=== PATIENT | female | born 1955 | race American Indian/Alaskan Native ===

== ENCOUNTER 2017-03-14 14:29 | Outpatient (CLI) | payer BC ==
--- NOTE | 2017-03-14 14:51 | Mammography Report ---
BILATERAL MAMMOGRAM with CAD: HISTORY: Digital screening. Comparison study is dated December 18, 2014. FINDINGS: There are scattered fibroglandular densities (approximately 25%-50% glandular). No mass, distortion, suspicious calcification, or skin change is seen. IMPRESSION: Negative mammogram. There is no mammographic evidence of malignancy. RECOMMENDATION: Follow-up per ACS guidelines. BI-RADS CATEGORY: 1 = Negative ACR BI-RADS MAMMOGRAPHIC CODES: 0 = Needs additional imaging evaluation; 1 = Negative; 2 = Benign; 3 = Probably benign; 4 = Suspicious; 5 = Malignant; 6 = Known biopsy-proven malignancy COMMENT: 1. Dense breast tissue, i.e., adenosis, fibrocystic changes, etc., may obscure an underlying neoplasm. 2. Approximately 10% of cancers are not detected with mammography. 3. A negative mammography report should not delay biopsy if a clinically suspicious mass is present. COMMENT: Patient follow-up letters are generated in 2,10E+07.
== END 2017-03-14 14:30 | disposition home or self-care (01) ==
LOC: MAMMO 14:29
PROVIDERS: ATTEND Physician Assistant
DX: Z12.31 Encounter for screening mammogram for malignant neoplasm of breast (principal)
CPT/HCPCS: 77067; G0202

== ENCOUNTER 2018-03-15 12:21 | Outpatient (CLI) | payer BC ==
--- NOTE | 2018-03-15 16:47 | Mammography Report ---
BILATERAL DIGITAL SCREENING MAMMOGRAM with CAD: 03/15/18 12:21:00 CLINICAL: Routine screening. COMPARISON:03/14/17 FINDINGS: The breasts are heterogeneously dense, which may obscure small masses. No mass, architectural distortion or suspicious calcifications. IMPRESSION: No mammographic evidence of malignancy. BI-RADS CATEGORY: 1 - - Negative RECOMMENDATION: Routine mammographic screening in one year. COMMENT: Patient follow-up letters are generated by our [employer] application.
== END 2018-03-15 12:22 | disposition home or self-care (01) ==
LOC: MAMMO 12:21
PROVIDERS: ATTEND Physician Assistant
DX: Z12.31 Encounter for screening mammogram for malignant neoplasm of breast (principal)
CPT/HCPCS: 77067

== ENCOUNTER 2019-04-21 20:20 | Emergency (ER) | payer BC ==
--- NOTE | 2019-04-21 20:28 | Event Note ---
ED Screening Note Date of service: 04/21/19 Time: 20:26 ED Screening Note: 63 y o female presents with elevated Bp out of her medication x 2 weeks cc of mckenna MED: enalalpril-hctz 10-25 This initial assessment/diagnostic orders/clinical plan/treatment(s) is/are subject to change based on patients health status, clinical progression and re- assessment by fellow clinical providers in the ED. Further treatment and workup at subsequent clinical providers discretion. Patient/guardian urged not to elope from the ED as their condition may be serious if not clinically assessed and managed. Initial orders include: clonidine
[2019-04-21 21:08] LABS: Basophils # (Auto) 0.1 K/mm3 (0.0-0.1); Eosinophils # (Auto) 0.1 K/mm3 (0.0-0.4); Eosinophils % (Auto) 1.8 % (0.0-4.3); Hematocrit 40.9 % (30.3-42.9); Hemoglobin 13.8 gm/dl (10.1-14.3); Lymphocytes # (Auto) 2.4 K/mm3 (1.2-5.4); Lymphocytes % (Auto) 39.9 % (13.4-35.0); Mean Corpuscular HGB Conc 34 % (30-34); Mean Corpuscular Volume 81 fl (79-97); Monocytes # (Auto) 0.4 K/mm3 (0.0-0.8); Monocytes % (Auto) 6.2 % (0.0-7.3); Platelet Count 233 K/mm3 (140-440); Red Blood Count 5.03 M/mm3 (3.65-5.03); Red Cell Distribution Width 13.5 % (13.2-15.2)
[2019-04-21 21:52] LABS: BUN/Creatinine Ratio 14; Blood Urea Nitrogen 10 mg/dL (7-17); Calcium 9.6 mg/dL (8.4-10.2); Hemolysis Index 3
--- NOTE | 2019-04-21 23:40 | Emergency Department Report ---
ED General Adult HPI - General Chief complaint: High BP Stated complaint: HIGH BP Time Seen by Provider: 04/21/19 20:25 Source: patient Mode of arrival: Ambulatory Limitations: No Limitations - History of Present Illness Initial comments: 63-year-old -[place] female with a known history of hypertension presented to the emergency department complaining of elevated blood pressures ranging from the 140s to the 160s over 90s, which is increased from her usual 120/80. States she's been out of her blood pressure medication for the last 2 weeks that she is transitioning to find a new PCP as her doctor has relocated. She says last week she had an occasional episode of dull headache associated with some mild dizziness and she also felt a flutter in her chest. She reports no local tenderness, swelling, hemoptysis, hematemesis or hematochezia. no fevers, chills, sweats. -: Gradual Consistency: intermittent Improves with: none Worsens with: none Associated Symptoms: chest pain. denies: fever/chills, loss of appetite, malaise, nausea/vomiting, seizure, syncope, weakness - Related Data Previous Rx's Medication Instructions Recorded Last Taken Type Enalapril/Hydrochlorothiazide 1 each PO DAILY #30 tablet 04/21/19 Unknown Rx [Enalapril-Hctz 10-25 mg Tablet] Allergies Allergy/AdvReac Type Severity Reaction Status Date / Time No Known Allergies Allergy Verified 04/21/19 20:23 ED Review of Systems ROS: Stated complaint: HIGH BP Other details as noted in HPI Comment: All other systems reviewed and negative ED Past Medical Hx - Past Medical History Hx Hypertension: Yes - Surgical History Past Surgical History?: No - Social History Smoking Status: Never Smoker Substance Use Type: None - Medications Home Medications: Home Medications Medication Instructions Recorded Confirmed Last Taken Type Enalapril/Hydrochlorothiazide 1 each PO DAILY #30 tablet 04/21/19 Unknown Rx [Enalapril-Hctz 10-25 mg Tablet] ED Physical Exam - General Limitations: No Limitations General appearance: alert, in no apparent distress - Head Head exam: Present: atraumatic, normocephalic - Eye Eye exam: Present: normal appearance - ENT ENT exam: Present: mucous membranes moist - Neck Neck exam: Present: normal inspection - Respiratory Respiratory exam: Present: normal lung sounds bilaterally. Absent: respiratory distress - Cardiovascular Cardiovascular Exam: Present: regular rate, normal rhythm. Absent: systolic murmur, diastolic murmur, rubs, gallop - GI/Abdominal GI/Abdominal exam: Present: soft, normal bowel sounds - Extremities Exam Extremities exam: Present: normal inspection - Back Exam Back exam: Present: normal inspection - Neurological Exam Neurological exam: Present: alert, oriented X3 - Psychiatric Psychiatric exam: Present: normal affect, normal mood - Skin Skin exam: Present: warm, dry, intact, normal color. Absent: rash ED Course Vital Signs 04/21/19 20:45 Temperature 98.6 F Pulse Rate 81 Respiratory 16 Rate Blood Pressure 161/96 O2 Sat by Pulse 97 Oximetry ED Medical Decision Making - Lab Data Result diagrams: 04/21/19 03:17 04/21/19 20:57 - Medical Decision Making 63-year-old -Cro[place] female status post hypertensin compliance issue due to running out of her medications. Asymptomatic at this present time. Patient is ambulatory in no acute distress. Stable vital signs with exception of blood pressure slightly elevated in the 1 at 160 over the 90s. She is satting well at 97% on room air. Heart rate 80, or any swelling and does not appear to be any acute processes or emergent medical condition. Advised patient on the importance of obtaining a primary care provider in the very near future and reassess resuming her current hypertension regimen, which is enalapril with hydrochlorothiazide Critical care attestation.: If time is entered above; I have spent that time in minutes in the direct care of this critically ill patient, excluding procedure time. ED Disposition Clinical Impression: HTN (hypertension) Disposition: -01 TO HOME OR SELFCARE Is pt being admited?: No Does the pt Need Aspirin: No Condition: Stable Instructions: Hypertension (ED) Prescriptions: Enalapril/Hydrochlorothiazide [Enalapril-Hctz 10-25 mg Tablet] 1 each PO DAILY #30 tablet Referrals: [facility] [Provider Group] - 3-5 Days
--- NOTE | 2019-04-22 | XRay Report ---
CHEST 2 VIEWS INDICATION / CLINICAL INFORMATION: sob and cp. COMPARISON: None available. FINDINGS: SUPPORT DEVICES: None. HEART / MEDIASTINUM: No significant abnormality. LUNGS / PLEURA: No significant pulmonary or pleural abnormality. No pneumothorax. ADDITIONAL FINDINGS: No significant additional findings. Bilateral nipple shadows IMPRESSION: 1. No acute findings. Signer Name: George Carvalho MD Signed: 04/21/2019 11:55 PM Workstation Name: [id number]
[2019-04-22 01:01] VITALS: BP 175/90
== END 2019-04-22 01:39 | disposition home or self-care (01) ==
LOC: ED 20:20
DX: I10 Essential (primary) hypertension (principal); Z79.899 Other long term (current) drug therapy
CPT/HCPCS: 36415; 71046; 80048; 85025; 99284

== ENCOUNTER 2019-05-21 11:44 | Observation (INO) | payer BC ==
[2019-05-21] MEDS ORDERED: MECLIZINE 25 MG TAB PO ONE (12:17)
[2019-05-21 12:44] LABS: Bilirubin,Urine NEG (Negative); Blood,Urine NEG (Negative); Color,Urine Straw (Yellow); Protein,Urine <15 mg/dL mg/dL (Negative); Urobilinogen,Urine < 2.0 mg/dL (<2.0)
[2019-05-21 12:58] LABS: RBC,Urine < 1.0 /HPF (0.0-6.0)
[2019-05-21 12:59] LABS: WBC,Urine < 1.0 /HPF (0.0-6.0)
[2019-05-21 13:17] LABS: Basophils % (Auto) 0.7 % (0.0-1.8); Hematocrit 43.6 % (30.3-42.9); Lymphocytes # (Auto) 1.6 K/mm3 (1.2-5.4); Lymphocytes % (Auto) 33.3 % (13.4-35.0); Mean Corpuscular HGB Conc 32 % (30-34); Mean Corpuscular Volume 82 fl (79-97); Monocytes # (Auto) 0.3 K/mm3 (0.0-0.8); Monocytes % (Auto) 6.7 % (0.0-7.3); Platelet Count 243 K/mm3 (140-440); Red Blood Count 5.31 M/mm3 (3.65-5.03); Red Cell Distribution Width 13.4 % (13.2-15.2)
[2019-05-21 13:28] LABS: BUN/Creatinine Ratio 16; Blood Urea Nitrogen 11 mg/dL (7-17); Hemolysis Index 7
--- NOTE | 2019-05-21 13:36 | Emergency Department Report ---
HPI - General Chief Complaint: Dizziness Time Seen by Provider: 05/21/19 12:14 - HPI HPI: 64-year-old Elise female presents to the emergency department with a complaint of some dizziness that has been going on since yesterday afternoon. She says that she has no previous history of this. No recent fall. She denies any headache, slurred speech, facial asymmetry, or any other neurological deficits. Patient says that she feels like she is spinning/moving. She denies any fever, chest pain, shortness of breath. She has not taken anything for her symptoms prior to arrival. She has a past medical history of hypertension. ED Past Medical Hx - Past Medical History Previous Medical History?: Yes Hx Hypertension: Yes - Surgical History Past Surgical History?: No - Social History Smoking Status: Never Smoker Substance Use Type: None - Medications Home Medications: Home Medications Medication Instructions Recorded Confirmed Last Taken Type Enalapril/Hydrochlorothiazide 1 each PO DAILY #30 tablet 04/21/19 05/21/19 Unknown Rx [Enalapril-Hctz 10-25 mg Tablet] ED Review of Systems ROS: Stated complaint: DIZZINESS Other details as noted in HPI Comment: All other systems reviewed and negative Constitutional: denies: chills, fever Eyes: denies: eye pain, vision change Respiratory: denies: cough, shortness of breath Cardiovascular: denies: chest pain, palpitations Gastrointestinal: denies: abdominal pain, vomiting Musculoskeletal: denies: back pain, arthralgia Neurological: other (dizziness). denies: headache Physical Exam - Physical Exam Vital Signs: Vital Signs 05/21/19 12:15 Temperature 98.1 F Pulse Rate 69 Respiratory 16 Rate Blood Pressure 139/91 O2 Sat by Pulse 100 Oximetry Physical Exam: GENERAL: The patient is well-developed well-nourished. HENT: Normocephalic. Atraumatic. Patient has moist mucous membranes. EYES: Extraocular motions are intact. Pupils equal reactive to light bila terally. Mild fatigable horizontal nystagmus. NECK: Supple. Trachea is midline. CHEST/LUNGS: Clear to auscultation. There is no respiratory distress noted. HEART/CARDIOVASCULAR: Regular. There is no tachycardia. There is no murmur. ABDOMEN: Abdomen is soft, nontender. Patient has normal bowel sounds. There is no abdominal distention. SKIN: Skin is warm and dry. NEURO: The patient is awake, alert, and oriented. The patient is cooperative. The patient has no focal neurologic deficits. Normal speech. Cranial nerves II through XII grossly intact. No pronator drift. No dysmetria. MUSCULOSKELETAL: There is no tenderness or deformity. There is no limitation range of motion. There is no evidence of acute injury. ED Course Vital Signs 05/21/19 12:15 Temperature 98.1 F Pulse Rate 69 Respiratory 16 Rate Blood Pressure 139/91 O2 Sat by Pulse 100 Oximetry ED Medical Decision Making - Lab Data Result diagrams: 05/21/19 12:41 05/21/19 12:41 - Radiology Data Radiology results: report reviewed CT HEAD WITHOUT CONTRAST INDICATION : dizziness. Syncope TECHNIQUE: Axial imaging performed from the skull apex through the skull base without the use of contrast. Sagittal and coronal reformatted images. All CT scans at this location are performed using CT dose reduction for ALARA by means of automated exposure control. COMPARISON: None FINDINGS: Parenchyma: No acute intracranial hemorrhage or parenchymal abnormality. Ventricles: Ventricles are normal in size and appear symmetric. Bones: No acute osseous abnormality. Sinuses: Sinuses and mastoid air cells are clear. Soft tissues: Soft tissues including the orbits appear normal. IMPRESSION: No acute abnormality. CTA head with intravenous contrast CLINICAL HISTORY: dizziness, unstable gait TECHNIQUE: 0.625 mm thick contiguous axial scans were obtained from the skull base to the skull vertex during rapid bolus administration of intravenous contrast material. Multiplanar reconstructions were produced in the coronal and sagittal planes. In addition 3 plane MIP instructions were produced and reviewed for this report. The axial source images and reconstructed images were reviewed for this report. All CT scans at this location are performed using CT dose reduction for ALARA by means of automated exposure control. FINDINGS: The caliber of the intracranial vessels is normal throughout. There is no indication of intracranial stenosis or large vessel occlusion. There is no indication of vasculitis. There is no evidence of aneurysm or other vascular malformation. IMPRESSION: 1. No abnormalities are identified on CTA head. CTA neck without and with intravenous contrast material, with multiplanar reconstruction and with three-dimensional reconstructions produced utilizing an independent workstation. CLINICAL HISTORY: dizziness, unstable gait TECHNIQUE: Following acquisition of a timing bolus 0.63 mm thick contiguous axial scans were obtained from aortic arch to the skull base during rapid bolus intravenous contrast infusion. In addition to evaluation of axial source images multiplanar reconstructions were produced and reviewed for this report. Three-dimensional reconstructions were produced utilizing an independent workstation. These were also reviewed for this report. FINDINGS: No abnormalities are seen at the origins of the great vessels. Common carotid arteries and carotid bifurcations have an unremarkable appearance. The distal cervical segments of both internal carotid arteries are quite tortuous but there is no indication of stenosis or other abnormality. There is no indication of hemodynamically significant stenosis. Normal and symmetrical vertebral arteries are present. There is no indication of stenosis along the course of the vertebral arteries. Both vertebral arteries contribute to the basilar artery origin. The basilar artery has an unremarkable appearance. The degree of stenosis, if any, is determined utilizing NASCET like criteria. In this case there is no indication of hemodynamically significant stenosis at the carotid bifurcations or elsewhere.. Evaluation of the nonvascular soft tissue structures reveal no abnormality. There is no indication of cervical lymphadenopathy. No abnormalities are seen along the course of the airway. Visualized portions of the parotid glands and the submandibular salivary glands have a normal appearance. Thyroid gland has a normal appearance. Evaluation of the lung apices reveals no evidence of lung nodule or infiltrate. Evaluation of the cervical spine is remarkable for cervical spondylosis with loss of disc height and anterior and posterior osteophyte formation at multiple levels. Facet and uncovertebral arthritic changes are present at multiple levels with bilateral neuroforaminal stenosis. IMPRESSION: 1. No indication of hemodynamically significant stenosis at the carotid bifurcations or elsewhere. - Medical Decision Making This patient presents with the complaint of some nonspecific dizziness. It partially sounds like some vertigo-like symptoms but she describes it more as feeling like she is spinning on the inside as opposed to a room spinning sensation. On examination she does not have any focal, motor or sensory deficits and her cranial nerves are intact. Labs were unremarkable. CBC, metabolic panel, TSH. EKG did not show any signs of ST elevation CT or dysrhythmia. CT scan of the head without contrast was done that does not show any bleed, shift, mass, ischemia, or any other acute process. I attempted to him. The patient but she appears unstable and had to be caught and then helped back to her room. I then ordered a CT angiography of the head and neck to look into a posterior circulation stroke or thrombus but they returned as negative for any obvious acute process or abnormalities. Once again we tried to ambulate the patient but she is still unstable. She will be admitted to the hospital for further evaluation and treatment and was accepted for admission by the hospitalist, Dr. Briggs. - Differential Diagnosis posterior circulation stroke, vertigo, MS Critical Care Time: No Critical care attestation.: If time is entered above; I have spent that time in minutes in the direct care of this critically ill patient, excluding procedure time. ED Disposition Clinical Impression: Unstable gait, Dizziness Disposition: OP ADMIT IP TO THIS HOSP Is pt being admited?: Yes Condition: Fair Referrals: PRIMARY CARE, [Primary Care Provider] - 3-5 Days Time of Disposition: 18:06
--- NOTE | 2019-05-21 15:06 | Cat Scan Report ---
CT HEAD WITHOUT CONTRAST INDICATION : dizziness. Syncope TECHNIQUE: Axial imaging performed from the skull apex through the skull base without the use of con trast. Sagittal and coronal reformatted images. All CT scans at this location are performed using C T dose reduction for ALARA by means of automated exposure control. COMPARISON: None FINDINGS: Parenchyma: No acute intracranial hemorrhage or parenchymal abnormality. Ventricles: Ventricles are normal in size and appear symmetric. Bones: No acute osseous abnormality. Sinuses: Sinuses and mastoid air cells are clear. Soft tissues: Soft tissues including the orbits appear normal. IMPRESSION: No acute abnormality. Signer Name: Eusebio Baumann Jr, MD Signed: 05/21/2019 3:01 PM Workstation Name: [id number]
--- NOTE | 2019-05-21 16:43 | Cat Scan Report ---
CTA head with intravenous contrast CLINICAL HISTORY: dizziness, unstable gait TECHNIQUE: 0.625 mm thick contiguous axial scans were obtained from the skull base to the skull vertex during ra pid bolus administration of intravenous contrast material. Multiplanar reconstructions were produced in the coronal and sagittal planes. In addition 3 plane MIP instructions were produced and reviewed f or this report. The axial source images and reconstructed images were reviewed for this report. All CT scans at this location are performed using CT dose reduction for ALARA by means of automated e xposure control. FINDINGS: The caliber of the intracranial vessels is normal throughout. There is no indication of intracranial stenosis or large vessel occlusion. There is no indication of vasculitis. There is no evidence of aneurysm or other vascular malformation. IMPRESSION: 1. No abnormalities are identified on CTA head. CONTRAST DOSE REPORT: Omnipaque 350:: 100 mL administered intravenously. Signer Name: Chago Mendoza MD Signed: 05/21/2019 4:39 PM Workstation Name: [id number]
--- NOTE | 2019-05-21 16:51 | Cat Scan Report ---
CTA neck without and with intravenous contrast material, with multiplanar reconstruction and with thr ee-dimensional reconstructions produced utilizing an independent workstation. CLINICAL HISTORY: dizziness, unstable gait TECHNIQUE: Following acquisition of a timing bolus 0.63 mm thick contiguous axial scans were obtained from aorti c arch to the skull base during rapid bolus intravenous contrast infusion. In addition to evaluation of axial source images multiplanar reconstructions were produced and reviewed for this report. Three- dimensional reconstructions were produced utilizing an independent workstation. These were also revie wed for this report. FINDINGS: No abnormalities are seen at the origins of the great vessels. Common carotid arteries and carotid bifurcations have an unremarkable appearance. The distal cervical segments of both internal carotid arteries are quite tortuous but there is no indication of stenosis or other abnormality. There is no indication of hemodynamically significant stenosis. Normal and symmetrical vertebral arteries are present. There is no indication of stenosis along the c ourse of the vertebral arteries. Both vertebral arteries contribute to the basilar artery origin. The basilar artery has an unremarkable appearance. The degree of stenosis, if any, is determined utilizing NASCET like criteria. In this case there is no indication of hemodynamically significant stenosis at the carotid bifurcations or elsewhere.. Evaluation of the nonvascular soft tissue structures reveal no abnormality. There is no indication of cervical lymphadenopathy. No abnormalities are seen along the course of the airway. Visualized porti ons of the parotid glands and the submandibular salivary glands have a normal appearance. Thyroid gla nd has a normal appearance. Evaluation of the lung apices reveals no evidence of lung nodule or infil trate. Evaluation of the cervical spine is remarkable for cervical spondylosis with loss of disc height and anterior and posterior osteophyte formation at multiple levels. Facet and uncovertebral arthritic edwardo nges are present at multiple levels with bilateral neuroforaminal stenosis. IMPRESSION: 1. No indication of hemodynamically significant stenosis at the carotid bifurcations or elsewhere. Contrast dose report: Omnipaque 350: 100 ml, administered intravenously All CT examinations performed at this facility utilize modulated dose reduction, iterative reconstruc tion or weight-based dosing, as appropriate, to obtain a radiation dose which is as low as can reason ably be achieved. Signer Name: Chago Mendoza MD Signed: 05/21/2019 4:47 PM Workstation Name: [id number]
[2019-05-21] MEDS ORDERED: ACETAMINOPHEN 325 MG TAB PO PRN (17:09)
[2019-05-21] MEDS ORDERED: ONDANSETRON 4 MG/2 ML INJ IV PRN (17:09)
[2019-05-21] MEDS ORDERED: ALBUTEROL 2.5 MG/3 ML NEBU IH PRN (17:09)
[2019-05-21] MEDS ORDERED: LORazepam 2 MG/ML VIAL IV PRN (17:11)
[2019-05-21] MEDS ORDERED: MECLIZINE 25 MG TAB PO PRN (17:12)
--- NOTE | 2019-05-21 17:22 | History and Physical Report ---
History of Present Illness Chief complaint: I feel dizzy History of present illness: 64 YO Female with HTN, Malnutrition presents to ED for evaluation. Pt states that she has experienced dizziness over the past 1 day. Pt states that she is unable to walk without losing her balance and feeling as though she is going to fall. Pt was transported to [facility] via private vehicle. Pt seen and evaluated in ED. Pt denies headache, slurred speech, vision loss, skin rash, or recent ill contacts. Patient reports feeling like the room is spinning/moving. Pt seen and evaluated in ED and found to have symptoms consistent with Vertigo. No prior visit for review. No medication listed for reconciliation. Past History Past Medical History: hypertension, other (malnutrition) Past Surgical History: No surgical history, Other (reviewed) Social history: single. denies: smoking, alcohol abuse, prescription drug abuse Family history: no significant family history Medications and Allergies Allergies Allergy/AdvReac Type Severity Reaction Status Date / Time No Known Allergies Allergy Verified 04/21/19 20:23 Home Medications Medication Instructions Recorded Confirmed Last Taken Type Enalapril/Hydrochlorothiazide 1 each PO DAILY #30 tablet 04/21/19 05/21/19 Unknown Rx [Enalapril-Hctz 10-25 mg Tablet] Active Meds: Active Medications Acetaminophen (Tylenol) 650 mg PO Q4H PRN PRN Reason: Pain MILD(1-3)/Fever >100.5/ABDI Albuterol (Proventil) 2.5 mg IH Q4HRT PRN PRN Reason: Shortness Of Breath Famotidine (Pepcid) 20 mg PO BID TEJA Lorazepam (Ativan) 1 mg IV Q4H PRN PRN Reason: Agitation Meclizine HCl (Antivert) 25 mg PO Q8H PRN PRN Reason: Vertigo Ondansetron HCl (Zofran) 4 mg IV Q8H PRN PRN Reason: Nausea And Vomiting Sodium Chloride (Sodium Chloride Flush Syringe 10 Ml) 10 ml IV BID TEJA Sodium Chloride (Sodium Chloride Flush Syringe 10 Ml) 10 ml IV PRN PRN PRN Reason: LINE FLUSH Review of Systems Constitutional: no weight loss, no weight gain, no fever, no chills Ears, nose, mouth and throat: no ear pain, no ear discharge, no tinnitis, no decreased hearing, no nose pain, no nasal congestion Breasts: no change in shape, no swelling, no mass Cardiovascular: no chest pain, no orthopnea, no palpitations, no rapid/irregular heart beat, no syncope, no lightheadedness Respiratory: no cough, no cough with sputum, no excessive sputum, no hemoptysis, no shortness of breath Gastrointestinal: no abdominal pain, no nausea, no vomiting, no diarrhea Genitourinary Female: no pelvic pain, no flank pain, no menorrhagia Rectal: no pain, no incontinence, no bleeding Musculoskeletal: no neck stiffness, no neck pain, no shooting arm pain, no arm numbness/tingling, no low back pain, no shooting leg pain, no leg numbness/tingling Integumentary: no rash, no pruritis, no redness, no sores, no wounds, no jau ndice, no boils Neurological: lack of coordination, vertigo, balance difficulties, no paralysis, no weakness, no parathesias, no numbness, no tingling Psychiatric: no anxiety, no memory loss, no change in sleep habits, no sleep disturbances, no insomnia, no hypersomnia, no change in appetite, no change in libido, no suicidal ideation Endocrine: no cold intolerance, no heat intolerance, no excessive thirst, no polydipsia, no polyuria, no nocturia, no excessive sweating, no weight change Hematologic/Lymphatic: no easy bruising, no easy bleeding, no lymphadenopathy, no lymphedema Allergic/Immunologic: no urticaria, no allergic rhinitis, no wheezing, no persistent infections, no anaphylaxis, no angioedema Exam - Constitutional Vitals: Temp Pulse Resp BP Pulse Ox 97.5 F L 61 16 142/89 100 05/21/19 16:33 05/21/19 16:33 05/21/19 16:33 05/21/19 16:33 05/21/19 16:33 General appearance: Present: no acute distress, well-nourished - EENT Eyes: Present: PERRL ENT: hearing intact, clear oral mucosa - Neck Neck: Present: supple, normal ROM - Respiratory Respiratory effort: normal Respiratory: bilateral: CTA - Cardiovascular Heart Sounds: Present: S1 & S2. Absent: rub, click - Extremities Extremities: pulses symmetrical, No edema Peripheral Pulses: within normal limits - Abdominal General gastrointestinal: Present: soft, non-tender, non-distended, normal bowel sounds Female genitourinary: Present: normal - Integumentary Integumentary: Present: clear, warm, dry - Musculoskeletal Musculoskeletal: gait normal, strength equal bilaterally - Psychiatric Psychiatric: appropriate mood/affect, intact judgment & insight - Neurologic Neurologic: CNII-XII intact, moves all extremities Results - Labs CBC & Chem 7: 05/21/19 12:41 05/21/19 12:41 Labs: Abnormal lab results 05/21/19 Range/Units 12:41 RBC 5.31 H (3.65-5.03) M/mm3 Hct 43.6 H (30.3-42.9) % MCH 27 L (28-32) pg Assessment and Plan - Patient Problems (1) Vertigo Current Visit: Yes Status: Acute Plan to address problem: Meclizine PRN, CT head, CTA Head/Neck, neuro checks, supportive care. (2) HTN (hypertension) Current Visit: Yes Status: Acute Qualifiers: Hypertension type: essential hypertension Qualified Code(s): I10 - Essential (primary) hypertension Plan to address problem: Monitor BP q shift, supportive care, (3) Malnutrition Current Visit: Yes Status: Acute Qualifiers: Malnutrition type: protein-calorie malnutrition Plan to address problem: Encourage increased protein intake, supportive care. dietary supplementation. (4) DVT prophylaxis Current Visit: Yes Status: Acute Plan to address problem: SCD to BLE while in bed, Pt ambulatory
[2019-05-21] MEDS: FAMOTIDINE 20 MG TAB PO SCH (22:34)
[2019-05-22 05:21] LABS: Basophils % (Auto) 0.7 % (0.0-1.8); Eosinophils # (Auto) 0.2 K/mm3 (0.0-0.4); Eosinophils % (Auto) 3.6 % (0.0-4.3); Hematocrit 38.8 % (30.3-42.9); Hemoglobin 12.9 gm/dl (10.1-14.3); Lymphocytes # (Auto) 2.5 K/mm3 (1.2-5.4); Lymphocytes % (Auto) 50.6 % (13.4-35.0); Mean Corpuscular HGB Conc 33 % (30-34); Mean Corpuscular Volume 81 fl (79-97); Monocytes # (Auto) 0.4 K/mm3 (0.0-0.8); Monocytes % (Auto) 7.7 % (0.0-7.3); Platelet Count 215 K/mm3 (140-440); Red Blood Count 4.79 M/mm3 (3.65-5.03); Red Cell Distribution Width 13.4 % (13.2-15.2)
[2019-05-22 06:04] LABS: BUN/Creatinine Ratio 15; Blood Urea Nitrogen 12 mg/dL (7-17); Calcium 9.3 mg/dL (8.4-10.2); Hemolysis Index 1
--- NOTE | 2019-05-22 08:20 | Progress Note ---
Assessment and Plan Assessment and plan: 64-year-old woman who presents to the hospital with dizziness. Past medical history; hypertension CT head; no acute abnormality CTA head and neck; no abnormalities are noted Diagnosis Dizziness Transient autonomic imbalance Vertigo Hypertension Malnutrition hypokalemia Plan CT head and CTA head negative. Has received meclizine. Continue blood pressure meds Potassium has been repleted Obtain echo and cardiology consult and carotid Dopplers, orthostatic vital signs DVT prophylaxis early ambulation and SCDs History Interval history: Dizziness is improved Review of systems Constitutional: No fevers, no malaise, no joint pains CVS: No chest pain, no orthopnea, no pedal edema GI: No abdominal pain, no diarrhea, no vomiting, no constipation Respiratory: No shortness of breath, no wheezing, no coughing Hospitalist Physical - Physical exam Narrative exam: General.: Appears well, no distress, nontoxic HEENT: Moist mucous membranes, extraocular muscles intact, no lymphadenopathy Neck: supple Cardiac: S1-S2 heard Lungs: clear to auscultation bilaterally Abdomen: soft , nontender, nondistended, bowel sounds positive Extremities: no edema clubbing or cyanosis Skin: no rash or lesions Neurologic: no gross focal deficits Psych: calm, and cooperative - Constitutional Vitals: Temp Pulse Resp BP Pulse Ox 98.0 F 68 16 117/75 99 05/22/19 05:41 05/22/19 05:41 05/22/19 05:41 05/22/19 05:41 05/22/19 05:41 General appearance: Present: no acute distress, well-nourished Results - Labs CBC & Chem 7: 05/22/19 04:39 05/22/19 04:39 Labs: Laboratory Last Values WBC 5.0 K/mm3 (4.5-11.0) 05/22/19 04:39 RBC 4.79 M/mm3 (3.65-5.03) 05/22/19 04:39 Hgb 12.9 gm/dl (10.1-14.3) 05/22/19 04:39 Hct 38.8 % (30.3-42.9) 05/22/19 04:39 MCV 81 fl (79-97) 05/22/19 04:39 MCH 27 pg (28-32) L 05/22/19 04:39 MCHC 33 % (30-34) 05/22/19 04:39 RDW 13.4 % (13.2-15.2) 05/22/19 04:39 Plt Count 215 K/mm3 (140-440) 05/22/19 04:39 Lymph % (Auto) 50.6 % (13.4-35.0) H 05/22/19 04:39 [place] % (Auto) 7.7 % (0.0-7.3) H 05/22/19 04:39 Eos % (Auto) 3.6 % (0.0-4.3) 05/22/19 04:39 Baso % (Auto) 0.7 % (0.0-1.8) 05/22/19 04:39 Lymph # 2.5 K/mm3 (1.2-5.4) 05/22/19 04:39 [place] # 0.4 K/mm3 (0.0-0.8) 05/22/19 04:39 Eos # 0.2 K/mm3 (0.0-0.4) 05/22/19 04:39 Baso # 0.0 K/mm3 (0.0-0.1) 05/22/19 04:39 Seg Neutrophils % 37.4 % (40.0-70.0) L 05/22/19 04:39 Seg Neutrophils # 1.9 K/mm3 (1.8-7.7) 05/22/19 04:39 Sodium 141 mmol/L (137-145) 05/22/19 04:39 Potassium 3.3 mmol/L (3.6-5.0) L 05/22/19 04:39 Chloride 103.5 mmol/L (98-107) 05/22/19 04:39 Carbon Dioxide 24 mmol/L (22-30) 05/22/19 04:39 Anion Gap 17 mmol/L 05/22/19 04:39 BUN 12 mg/dL (7-17) 05/22/19 04:39 Creatinine 0.8 mg/dL (0.7-1.2) 05/22/19 04:39 Estimated GFR > 60 ml/min 05/22/19 04:39 BUN/Creatinine Ratio 15 % 05/22/19 04:39 Glucose 86 mg/dL (65-100) 05/22/19 04:39 Calcium 9.3 mg/dL (8.4-10.2) 05/22/19 04:39 TSH 1.480 mlU/mL (0.270-4.200) 05/21/19 14:28 Urine Color Straw (Yellow) 05/21/19 12:32 Urine Turbidity Clear (Clear) 05/21/19 12:32 Urine pH 6.0 (5.0-7.0) 05/21/19 12:32 Ur Specific [place] 1.008 (1.003-1.030) 05/21/19 12:32 Urine Protein <15 mg/dl mg/dL (Negative) 05/21/19 12:32 Urine Glucose (UA) Neg mg/dL (Negative) 05/21/19 12:32 Urine Ketones Neg mg/dL (Negative) 05/21/19 12:32 Urine Blood Neg (Negative) 05/21/19 12:32 Urine Nitrite Neg (Negative) 05/21/19 12:32 Urine Bilirubin Neg (Negative) 05/21/19 12:32 Urine Urobilinogen < 2.0 mg/dL (<2.0) 05/21/19 12:32 Ur Leukocyte Esterase Neg (Negative) 05/21/19 12:32 Urine WBC (Auto) < 1.0 /HPF (0.0-6.0) 05/21/19 12:32 Urine RBC (Auto) < 1.0 /HPF (0.0-6.0) 05/21/19 12:32 U Epithel Cells (Auto) < 1.0 /HPF (0-13.0) 05/21/19 12:32 Active Medications - Current Medications Current Medications: Generic Name Dose Route Start Last Admin Trade Name Freq PRN Reason Stop Dose Admin Acetaminophen 650 mg 05/21/19 17:09 Tylenol PO Q4H PRN Pain MILD(1-3)/Fever >100.5/ABDI Albuterol 2.5 mg 05/21/19 17:09 Proventil IH Q4HRT PRN Shortness Of Breath Famotidine 20 mg 05/21/19 22:00 05/21/19 22:34 Pepcid PO 20 mg BID TEJA Administration Lorazepam 1 mg 05/21/19 17:11 Ativan IV Q4H PRN Agitation Meclizine HCl 25 mg 05/21/19 17:12 Antivert PO Q8H PRN Vertigo Ondansetron HCl 4 mg 05/21/19 17:09 Zofran IV Q8H PRN Nausea And Vomiting Sodium Chloride 10 ml 05/21/19 22:00 05/21/19 22:34 Sodium Chloride Flush Syringe 10 Ml IV 10 ml BID TEJA Administration Sodium Chloride 10 ml 05/21/19 17:09 Sodium Chloride Flush Syringe 10 Ml IV PRN PRN LINE FLUSH
[2019-05-22] MEDS ORDERED: POTASSIUM CHLORIDE ER 20 MEQ TAB PO ONE (09:00)
--- NOTE | 2019-05-22 10:35 | Consultation ---
History of Present Illness Consult date: 05/22/19 Requesting physician: FLO RODRIGUEZ Consult reason: other (dizziness) History of present illness: The pt is a 64-year-old female with a past medical history of HTN and newly diagnosed dyslipidemia. Her PCP is at [facility]. She presented with c/o dizziness for 1 day prior to arrival. She states that she had just finished eating dinner with her family when she noted the onset of a "room spinning" sensation. She went to bed and her dizziness persisted throughout the night and thus she decided to seek medical attention. She denies any occurrence of chest pain, palpitations, n/v, diaphoresis or syncope. She denies any prior cardiac issues or cardiac w/u. She takes enalapril for HTN. On evaluation, she states she is feeling much better, spinning sensation has nearly resolved since initiation of Meclizine. Past History Past Medical History: hypertension Past Surgical History: No surgical history, Other (reviewed) Social history: single. denies: smoking, alcohol abuse, prescription drug abuse Family history: no significant family history Medications and Allergies Allergies Allergy/AdvReac Type Severity Reaction Status Date / Time No Known Allergies Allergy Verified 04/21/19 20:23 Home Medications Medication Instructions Recorded Confirmed Last Taken Type Enalapril/Hydrochlorothiazide 1 each PO DAILY #30 tablet 04/21/19 05/21/19 Unknown Rx [Enalapril-Hctz 10-25 mg Tablet] Meclizine [Antivert] 25 mg PO Q8H PRN #30 tablet 05/22/19 Unknown Rx Active Meds: Active Medications Acetaminophen (Tylenol) 650 mg PO Q4H PRN PRN Reason: Pain MILD(1-3)/Fever >100.5/ABDI Albuterol (Proventil) 2.5 mg IH Q4HRT PRN PRN Reason: Shortness Of Breath Famotidine (Pepcid) 20 mg PO BID TEJA Last Admin: 05/21/19 22:34 Dose: 20 mg Documented by: Lorazepam (Ativan) 1 mg IV Q4H PRN PRN Reason: Agitation Meclizine HCl (Antivert) 25 mg PO Q8H PRN PRN Reason: Vertigo Ondansetron HCl (Zofran) 4 mg IV Q8H PRN PRN Reason: Nausea And Vomiting Sodium Chloride (Sodium Chloride Flush Syringe 10 Ml) 10 ml IV BID [facility] Last Admin: 05/21/19 22:34 Dose: 10 ml Documented by: Sodium Chloride (Sodium Chloride Flush Syringe 10 Ml) 10 ml IV PRN PRN PRN Reason: LINE FLUSH Review of Systems Constitutional: no weight loss, no weight gain, no fever, no chills, no sweats Ears, nose, mouth and throat: vertigo, no ear pain, no nose pain, no sinus pressure, no sinus pain, no headache Cardiovascular: high blood pressure, no chest pain, no orthopnea, no palpitations, no rapid/irregular heart beat, no edema, no syncope, no lightheadedness, no shortness of breath, no dyspnea on exertion, no leg edema, no decreased exercise tolerance Respiratory: no cough, no shortness of breath, no dyspnea on exertion, no congestion, no wheezing, no pain on inspiration Gastrointestinal: no abdominal pain, no nausea, no vomiting, no diarrhea, no con stipation, no change in bowel habits Genitourinary Female: no pelvic pain, no flank pain, no dysuria, no urinary frequency, no urgency Musculoskeletal: no neck stiffness, no neck pain, no shooting arm pain, no arm numbness/tingling, no low back pain, no shooting leg pain, no leg numbness/tingling Integumentary: no rash, no pruritis, no redness, no sores, no wounds Neurological: vertigo, no head injury, no paralysis, no weakness, no parathesias, no numbness, no tingling, no seizures, no syncope, no lack of coordination, no headaches, no change in speech, no change in mentation, no balance difficulties, no gait dysfunction Psychiatric: no anxiety Endocrine: no heat intolerance Hematologic/Lymphatic: no easy bruising, no easy bleeding Allergic/Immunologic: no urticaria, no wheezing Physical Examination Vital Signs Temp Pulse Resp BP Pulse Ox 98.1 F 69 16 139/91 100 05/21/19 12:15 05/21/19 12:15 05/21/19 12:15 05/21/19 12:15 05/21/19 12:15 General appearance: no acute distress HEENT: Positive: PERRL, Normocephaly, Mucus Membranes Moist Neck: Positive: neck supple, trachea midline Cardiac: Positive: Reg Rate and Rhythm, S1/S2 Lungs: Positive: Decreased Breath Sounds Neuro: Positive: Grossly Intact Abdomen: Negative: Tender Skin: Negative: Rash Musculoskeletal: No Pain Extremities: Absent: edema Results 05/22/19 04:39 05/22/19 04:39 CBC 05/21/19 05/22/19 Range/Units 12:41 04:39 WBC 4.8 5.0 (4.5-11.0) K/mm3 RBC 5.31 H 4.79 (3.65-5.03) M/mm3 Hgb 14.0 12.9 (10.1-14.3) gm/dl Hct 43.6 H 38.8 (30.3-42.9) % Plt Count 243 215 (140-440) K/mm3 Lymph # 1.6 2.5 (1.2-5.4) K/mm3 Slope # 0.3 0.4 (0.0-0.8) K/mm3 Eos # 0.0 0.2 (0.0-0.4) K/mm3 Baso # 0.0 0.0 (0.0-0.1) K/mm3 Comprehensive Metabolic Panel 05/21/19 05/22/19 Range/Units 12:41 04:39 Sodium 140 141 (137-145) mmol/L Potassium 3.6 3.3 L (3.6-5.0) mmol/L Chloride 99.7 103.5 (98-107) mmol/L Carbon Dioxide 25 24 (22-30) mmol/L BUN 11 12 (7-17) mg/dL Creatinine 0.7 0.8 (0.7-1.2) mg/dL Glucose 94 86 (65-100) mg/dL Calcium 10.0 9.3 (8.4-10.2) mg/dL - Imaging and Cardiology Echo: pending EKG: report reviewed, image reviewed EKG interpretations - Telemetry EKG Rhythm: Sinus Rhythm - EKG Sinus rhythms and dysrhythmias: sinus rhythm Assessment and Plan Suspected Vertigo Head CT, head CTA, neck CTA with NAF. Nearly resolved since initiation of Meclizine. ECG with NAF. In SR, HR 56bpm - 70s, on telemetry with no acute events noted since admission. TSH WNL. Echo reviewed - EF 55-60%, small pericardial effusion. Obtain orthostatics. Intermittent sinus bradycardia In SR, HR 56bpm - 70s, on telemetry with no acute events noted since admission. Pt on Enalapril/HCTZ at home. Would cont to avoid AV hua blocking agents. Echo reviewed - EF 55-60%, small pericardial effusion. TSH WNL. HTN Stable. Cont home anti-hypertensive regimen. Obtain orthostatics. Pt's c/o "room spinning" is nearly resolved, suspect vertigo. Pending orthostatics are unremarkable, pt may discharge from cardiology standpoint. Recommend follow up in our office with Dr. Peng within 1-2 weeks ([phone]). The patient has been seen in conjunction with Dr. Peng who agrees with the assessment and plan of care.
[2019-05-22] MEDS: FAMOTIDINE 20 MG TAB PO SCH (10:48)
--- NOTE | 2019-05-22 11:14 | Vascular Lab Report ---
BILATERAL CAROTID DOPPLER ULTRASOUND INDICATION : dizzyness TECHNIQUE: Grayscale and color Doppler imaging performed through the neck. COMPARISON: None FINDINGS: Right: There is no significant atherosclerotic disease. Peak systolic velocity in the CCA is 67 cm/ s with end-diastolic velocity of 16 cm/s. Peak systolic velocity in the proximal ICA is 90 cm/s with end-diastolic velocity of 28 cm/s. ICA to CCA ratio is less than 2. There is antegrade flow in the E CA and the vertebral artery. Left: There is no significant atherosclerotic disease. Peak systolic velocity in the CCA is 66 cm/s w ith end-diastolic velocity of 17 cm/s. Peak systolic velocity in the proximal ICA is 80 cm/s with end -diastolic velocity of 22 cm/s. ICA to CCA ratio is less than 2. There is antegrade flow in the ECA and the vertebral artery. IMPRESSION: No hemodynamically significant stenosis by NASCET criteria. Signer Name: Eusebio Baumann Jr, MD Signed: 05/22/2019 11:10 AM Workstation Name: [id number]
[2019-05-22 12:12] VITALS: BP 133/91
--- NOTE | 2019-05-22 13:53 | Discharge Summary ---
Providers - Providers Date of Admission: 05/21/19 17:09 Attending physician: FLO RODRIGUEZ MD 05/21/19 17:11 Physical Therapy Evaluation and Treat [CONS] Routine Comment: Reason For Exam: [place] [facility]/Vestibular Rehab 05/22/19 08:17 Consult to Cardiology [CONS] Routine Consulting Provider: DARCI OLIVIER Reason For Exam: dizzyness Primary care physician: [employer] Hospitalization Condition: Fair Hospital course: 64-year-old woman who presents to the hospital with dizziness and vertigo. Past medical history; hypertension CT head; no acute abnormality CTA head and neck; no abnormalities are noted Carotid Dopplers were negative Echo did not show any structural abnormalities -Orthostatic vital signs were normal -She was also seen by cardiology while in hospital. The patient was reassured, she was told to follow-up with her primary care for ENT referral should vertigo persists. She was given meclizine as needed upon discharge. If this does not improve she will need to go to inner ear rehab for Raphael maneuver Preventative health counseling performed for 17 minutes Diagnosis Dizziness/vertigo Transient autonomic imbalance Vertigo Hypertension Malnutrition hypokalemia Disposition: - TO HOME OR SELFCARE Time spent for discharge: 33 minutes Core Measure Documentation - Palliative Care Palliative Care/ Comfort Measures: Not Applicable - Core Measures Any of the following diagnoses?: none Exam - Constitutional Vitals: Temp Pulse Resp BP Pulse Ox 98.7 F 87 16 133/91 99 05/22/19 11:51 05/22/19 11:51 05/22/19 11:51 05/22/19 11:51 05/22/19 11:51 General appearance: Present: no acute distress, well-nourished - EENT Eyes: Present: PERRL ENT: hearing intact, clear oral mucosa - Neck Neck: Present: supple, normal ROM - Respiratory Respiratory effort: normal Respiratory: bilateral: CTA - Cardiovascular Heart Sounds: Present: S1 & S2. Absent: rub, click - Extremities Extremities: pulses symmetrical, No edema Peripheral Pulses: within normal limits - Abdominal General gastrointestinal: Present: soft, non-tender, non-distended, normal bowel sounds Female genitourinary: Present: normal - Integumentary Integumentary: Present: clear, warm, dry - Musculoskeletal Musculoskeletal: gait normal, strength equal bilaterally - Psychiatric Psychiatric: appropriate mood/affect, intact judgment & insight - Neurologic Neurologic: CNII-XII intact, moves all extremities Plan Follow up with: PRIMARY CARE, [Primary Care Provider] - 3-5 Days Prescriptions: Meclizine [Antivert] 25 mg PO Q8H PRN #30 tablet PRN Reason: Vertigo
== END 2019-05-22 13:58 | disposition home or self-care (01) ==
LOC: ED 11:44 → 3A 17:09
PROVIDERS: ADMIT Internal Medicine; ATTEND Internal Medicine
DX: R42 Dizziness and giddiness (principal); I10 Essential (primary) hypertension; E46 Unspecified protein-calorie malnutrition
CPT/HCPCS: 36415; 70450; 70496; 70498; 80048; 81001; 84443; 85025; 93005; 93010; 93306; 93880; 97161; 99284; G0378; Q9967

== ENCOUNTER 2021-01-28 19:48 | Emergency (ER) | payer BC ==
[2021-01-28] MEDS ORDERED: ASPIRIN 325 MG TAB PO ONE (22:28)
[2021-01-28 23:36] LABS: Eosinophils # (Auto) 0.2 K/mm3 (0.0-0.4); Eosinophils % (Auto) 2.6 % (0.0-4.3); Hematocrit 40.8 % (30.3-42.9); Hemoglobin 13.4 gm/dl (10.1-14.3); Lymphocytes # (Auto) 2.2 K/mm3 (1.2-5.4); Lymphocytes % (Auto) 33.5 % (13.4-35.0); Mean Corpuscular HGB Conc 33 % (30-34); Mean Corpuscular Volume 82 fl (79-97); Monocytes # (Auto) 0.4 K/mm3 (0.0-0.8); Monocytes % (Auto) 5.8 % (0.0-7.3); Platelet Count 298 K/mm3 (140-440); Red Blood Count 4.96 M/mm3 (3.65-5.03); Red Cell Distribution Width 13.4 % (13.2-15.2)
[2021-01-28 23:46] LABS: Alanine Aminotransferase 14 units/L (7-56); Albumin 4.9 g/dL (3.9-5); Blood Urea Nitrogen 14 mg/dL (7-17); Calcium 9.8 mg/dL (8.4-10.2); Hemolysis Index 2
[2021-01-28 23:51] LABS: BUN/Creatinine Ratio 23
--- NOTE | 2021-01-29 00:35 | XRay Report ---
CHEST 2 VIEWS INDICATION / CLINICAL INFORMATION: chest pain. COMPARISON: 04/21/2019 FINDINGS: SUPPORT DEVICES: None. HEART / MEDIASTINUM: No significant abnormality. LUNGS / PLEURA: Lungs are mildly hyperinflated but otherwise grossly clear. No acute pulmonary or ple ural process noted. A few calcified granulomas are present in the right lung base. No pneumothorax. ADDITIONAL FINDINGS: No significant additional findings. IMPRESSION: 1. No acute findings. No interval change. Signer Name: Amrita Fontaine MD Signed: 01/29/2021 12:30 AM Workstation Name: [id number]
--- NOTE | 2021-01-29 03:36 | Emergency Department Report ---
HPI - General Chief Complaint: Chest Pain Time Seen by Provider: 01/29/21 03:15 - HPI HPI: Room 6 The patient is a 65-year-old female present with a chief complaint of dizziness. Patient states she had 2 episodes of dizziness the first of which occurred approximately 7 days ago. Patient states she had been driving in her car without incident. The patient states that when she was in a parking lot in a car was sitting still she had a sensation that her car was moving even though she was parked. She states the symptoms lasted for several seconds and then subsided. The patient was able to drive without event for the remainder of the week. Earlier this week approximately 2 to 3 days ago she had a second episode of the same when her car was parked she had the sensation of movement and this lasted for several seconds and then resolved. The patient states in 2018 she had a similar episode and was diagnosed with vertigo and sent to an ENT but her work-up was normal. The patient states for the past several months she is had intermittent stinging pain to the left chest that lasts several minutes and then resolved. Patient denies shortness of breath, nausea/vomiting or diaphoresis with these episodes. Patient denies history of palpitations. Patient currently denies chest pain. Patient is currently asymptomatic ED Past Medical Hx - Past Medical History Previous Medical History?: Yes Hx Hypertension: Yes - Surgical History Past Surgical History?: No - Family History Family history: no significant - Social History Smoking Status: Never Smoker Substance Use Type: None (Denies illicit drug use) - Medications Home Medications: Home Medications Medication Instructions Recorded Confirmed Last Taken Type Enalapril/Hydrochlorothiazide 1 each PO DAILY #30 tablet 04/21/19 05/21/19 Unknown Rx [Enalapril-Hctz 10-25 mg Tablet] Meclizine [Antivert] 25 mg PO Q8H PRN #30 tablet 05/22/19 Unknown Rx ED Review of Systems ROS: Stated complaint: DIZZINESS Other details as noted in HPI Constitutional: no symptoms reported Eyes: denies: eye pain ENT: denies: throat pain Respiratory: denies: shortness of breath Cardiovascular: chest pain. denies: palpitations Endocrine: no symptoms reported Gastrointestinal: denies: abdominal pain Genitourinary: denies: urgency, dysuria Musculoskeletal: denies: back pain Neurological: vertigo. denies: headache Physical Exam - Physical Exam Vital Signs: Vital Signs 01/28/21 22:24 Temperature 98.0 F Pulse Rate 56 L Respiratory 16 Rate Blood Pressure 178/85 O2 Sat by Pulse 100 Oximetry Physical Exam: GENERAL: The patient is well-developed well-nourished female lying on stretcher not appearing to be in acute distress. [] HEENT: Normocephalic. Atraumatic. Extraocular motions are intact. Patient has moist mucous membranes. No nystagmus NECK: Supple. Trachea midline CHEST/LUNGS: Clear to auscultation. There is no respiratory distress noted. HEART/CARDIOVASCULAR: Regular. There is no tachycardia. There is no gallop rub or murmur. ABDOMEN: Abdomen is soft, nontender. Patient has normal bowel sounds. There is no abdominal distention. SKIN: There is no rash. There is no edema. There is no diaphoresis. NEURO: The patient is awake, alert, and oriented. The patient is cooperative. The patient has no focal neurologic deficits. The patient has normal speech. Cranial nerves II through XII grossly intact. No dysmetria noted with [id number] bilaterally. GCS 15 MUSCULOSKELETAL: There is no evidence of acute injury. ED Course Vital Signs 01/28/21 22:24 Temperature 98.0 F Pulse Rate 56 L Respiratory 16 Rate Blood Pressure 178/85 O2 Sat by Pulse 100 Oximetry ED Medical Decision Making - Lab Data Result diagrams: 01/28/21 23:01 01/28/21 23:01 - EKG Data -: EKG Interpreted by Me EKG shows normal: sinus rhythm Rate: bradycardia (57 beats per) - EKG Data When compared to previous EKG there are: no significant change Interpretation: unchanged when compared t (05/21/2019) - Radiology Data Radiology results: report reviewed (Chest x-ray, CT head), image reviewed (Chest x-ray, CT head) interpreted by me: Chest x-ray-no focal infiltrates, no pneumothorax. No foreign body seen [facility] [address] [place] [address] XRay Report Signed Patient: SILVANA NAVA MR#: [id number] 740 : 1955 Acct:[id number] Age/Sex: 65 / F ADM Date: 01/28/21 Loc: ED Attending Dr: Ordering Physician: ED DOC, Date of Service: 01/28/21 Procedure(s): XR chest routine 2V Accession Number(s): [id number] cc: ED MD JOLANTA Fluoro Time In Minutes: CHEST 2 VIEWS INDICATION / CLINICAL INFORMATION: chest pain. COMPARISON: 04/21/2019 FINDINGS: SUPPORT DEVICES: None. HEART / MEDIASTINUM: No significant abnormality. LUNGS / PLEURA: Lungs are mildly hyperinflated but otherwise francis sly clear. No acute pulmonary or pleural process noted. A few calcified granulomas are present in the right lung base. No pneumothor ax. ADDITIONAL FINDINGS: No significant additional findings. IMPRESSION: 1. No acute findings. No interval change. Signer Name: Amrita Fontaine MD Signed: 01/29/2021 12:30 AM Workstation Name: [id number] Transcribed By: Dictated By: Amrita Fontaine MD Electronically Authenticated By: Amrita Fontaine MD Signed Date/Time: 01/29/2129 DD/ TD/TT: [place] [address] Cat Scan Report Signed Patient: SILVANA NAVA MR#: [id number] 740 : 1955 Acct:[id number] Age/Sex: 65 / F ADM Date: 01/28/21 Loc: ED Attending Dr: Ordering Physician: THIERNO EMERY MD Date of Service: 01/29/21 Procedure(s): CT head/brain wo con Accession Number(s): [id number] cc: THIERNO EMERY MD CT head/brain wo con INDICATION / CLINICAL INFORMATION: Patient complains of Hypertension and Vertigo. TECHNIQUE: Axial CT imaging of the brain was obtained without contrast. Coronal and sagittal reformatted imaging obtained and reviewed. All CT scans at this location are performed using CT dose reduction for ALARA by means of automated exposure control. COMPARISON: 05/21/[address] FINDINGS: No intracranial hemorrhage, mass, or midline shift is noted. No extra-axial fluid collection or suggestion of acute territorial infarction. There is old lacunar infarction involving the right external capsule of the basal ganglia. The ventricular system and basilar cisterns are unremarkable. Visualized paranasal sinuses are well aerated and clear. No calvarial abnormality noted. IMPRESSION: 1. No acute intracranial abnormality. Signer Name: Amrita Fontaine MD Signed: 01/29/2021 4:08 AM Workstation Name: [id number] Transcribed By: Dictated By: Amrita Fontaine MD Electronically Authenticated By: Amrita Fontaine MD Signed Date/Time: 01/29/21407 DD/ 2 TD/TT: Print Cancel - Differential Diagnosis Vertigo, atypical chest pain, angina, dehydration, orthostasis Critical care attestation.: If time is entered above; I have spent that time in minutes in the direct care of this critically ill patient, excluding procedure time. ED Disposition Clinical Impression: Vertigo, HTN (hypertension) Disposition: DC-07 LEFT AGAINST MED ADVICE Is pt being admited?: No Does the pt Need Aspirin: No Condition: Undetermined Instructions: Hypertension (ED) Referrals: [facility] DARIA [Primary Care Provider] - 3-5 Days Time of Disposition: 04:38 (Patient does not wish to wait for third troponin or blood pressure management)
[2021-01-29 03:45] VITALS: BP 175/78
--- NOTE | 2021-01-29 04:13 | Cat Scan Report ---
CT head/brain wo con INDICATION / CLINICAL INFORMATION: Patient complains of Hypertension and Vertigo. TECHNIQUE: Axial CT imaging of the brain was obtained without contrast. Coronal and sagittal reformatted imaging obtained and reviewed. All CT scans at this location are performed using CT dose reduction for PHYLLIS Moody by means of automated exposure control. COMPARISON: 05/21/[address] FINDINGS: No intracranial hemorrhage, mass, or midline shift is noted. No extra-axial fluid collection or sugge stion of acute territorial infarction. There is old lacunar infarction involving the right external c apsule of the basal ganglia. The ventricular system and basilar cisterns are unremarkable. Visualized paranasal sinuses are well aerated and clear. No calvarial abnormality noted. IMPRESSION: 1. No acute intracranial abnormality. Signer Name: Amrita Fontaine MD Signed: 01/29/2021 4:08 AM Workstation Name: [id number]
[2021-01-29] MEDS ORDERED: cloNIDine 0.2 MG TAB PO ONE (04:37)
--- NOTE | 2021-02-04 11:10 | Electrocardiograph Report ---
[facility] Test Date: 2021-01-28 Test Time: 22:41:12 Pat Name: SILVANA NAVA Department: Room: Gender: F Concession Attendant: : 1955 Requested By: THIERNO EMERY Order Number: [id number] Reading MD: Nilam Chou Measurements Intervals [place] Rate: 57 P: 62 LA: 179 QRS: -28 QRSD: 78 T: 65 QT: 436 QTc: 427 Interpretive Statements Sinus bradycardia Probable left atrial enlargement Low voltage, extremity leads No previous ECG available for comparison Electronically Signed On 02-04-2021 11:10:20 EDT by Nilam Chou
== END 2021-01-29 04:45 | disposition left against medical advice (07) ==
LOC: ED 19:48
DX: R42 Dizziness and giddiness (principal); I10 Essential (primary) hypertension; Z79.899 Other long term (current) drug therapy
CPT/HCPCS: 36415; 70450; 71046; 80053; 84484; 85025; 93005

== ENCOUNTER 2021-09-28 10:10 | Outpatient (CLI) | payer MEDICARE ==
--- NOTE | 2021-09-30 14:24 | Mammography Report ---
DIGITAL SCREENING MAMMOGRAM WITH CAD, 09/28/2021 CLINICAL INFORMATION / INDICATION: Routine screening mammography. TECHNIQUE: Digital bilateral 2D mammography was obtained in the craniocaudal and mediolateral obliqu e projections. This examination was interpreted with the benefit of Computer-Aided Detection analysis . COMPARISON: 03/15/2018 FINDINGS: Breast Density: The breasts are heterogeneously dense, which may obscure small masses. No dominant mass, suspicious calcifications, or architectural distortion in either breast. No interval change. IMPRESSION: No mammographic evidence of malignancy. Follow up recommendation: Routine yearly BI-RADS Category 1: NEGATIVE A "normal" or negative report should not discourage follow up or biopsy of a clinically significant f inding. A written summary of these findings will be mailed to the patient. The patient will be entered into a mammography reporting system which will generate a reminder letter for the patient's next appointmen t at the appropriate interval. The [employer] recommends yearly mammograms starting at age 40 and continuing as l juanita as a woman is in good health. Breast MRI is recommended for women with an approximate 20-25% or greater lifetime risk of breast cancer, including women with a strong family history of breast or ova berto cancer or who have been treated for Hodgkin's disease. Signer Name: Amrita Fontaine MD Signed: 09/30/2021 2:19 PM Workstation Name: [id number]
== END 2021-09-28 10:11 | disposition home or self-care (01) ==
LOC: MAMMO 10:10
PROVIDERS: ATTEND Student in an Organized Health Care Education/Training Program
DX: Z12.31 Encounter for screening mammogram for malignant neoplasm of breast (principal)
CPT/HCPCS: 77067